=== PATIENT | female | born 1960 | race Caucasian/White ===

== ENCOUNTER 2018-02-06 00:45 | Emergency (ER) | payer MEDICAID ==
[~2018-02-06] VITALS: Ht 154.9 cm; Wt 78.0 kg
[~2018-02-06 00:45] MED LIST: ALPR1TAB2 PO; BACL10TA PO; LEVO500T20 PO; METR500T PO; TRAM50TA92 PO; VALS80TA2 PO
[2018-02-06 01:00] VITALS: BP_SYST 138
--- NOTE | 2018-02-06 01:45 | NUR ---
PLACED IN [facility], AT BEDSIDE. WRISTBAND ON, STABLE.
--- NOTE | 2018-02-06 01:56 | NUR ---
PATIENT PRESENTS TO ED WITH EXASCERBATION OF CHRONIC PAIN, CRAMPING, POSSIBLY RELATED TO CANCER AND TAMOXIFEN.
--- NOTE | 2018-02-06 02:05 | NUR ---
AT BEDSIDE, DR CARMONA
[2018-02-06] MEDS ORDERED: KETOROLAC TROMETHAMINE 60 MG/2 ML VIAL IM ONE ×3 (02:15→10:00)
--- NOTE | 2018-02-06 02:25 | NUR ---
PATIENT MEDICATED WITH MORPHINE IM. IS SLEEPING, SQUIRMING, KICKING RAILS AND MOANING IN HER SLEEP
[2018-02-06] MEDS ORDERED: MORPHINE 4 MG/ML INJ. SYRINGE ONE (02:37)
--- NOTE | 2018-02-06 02:53 | NUR ---
Alexis mitchell in ED - 02/06/18 at 0409 by MITESH REWRAPPED ARM SPLINT WITH TWO ADENIKE BANDAGES AND GAUZE. PATIENT UNABLE TO SIT DUE TO CHRONIC PAIN, IS PACING IN HALLWAY.
[2018-02-06] MEDS ORDERED: MORPHINE 4 MG/ML INJ. SYRINGE IM ONE (03:00)
--- NOTE | 2018-02-06 03:30 | NUR ---
# 20 gauge angiocath placed to LH. Use of asceptic technique. Opsite placed over site. Blood return noted. UNABLE TO OBTAIN BLOOD. Flushed with 10 cc of normal saline. No evidence of infiltration noted. Patient tolerated well.
[2018-02-06] MEDS ORDERED: MAGNESIUM SULFATE 50 ML IV ONE (04:00)
[2018-02-06] MEDS ORDERED: DIAZEPAM 10 MG/2 ML DISP.SYRIN IVP ONE (04:00)
[2018-02-06] MEDS ORDERED: NACL 0.9% 1,000 ML IV ONE (04:00)
[2018-02-06] MEDS ORDERED: LORazepam 2 MG/ML VIAL (FOR ER USE) IVP ONE (04:30)
[2018-02-06 05:55] LABS: BASOPHILS # (AUTO) 0.1 K/uL (0.0-0.2); BASOPHILS % (AUTO) 0.7 % (0.0-2.0); EOSINOPHILS # (AUTO) 0.3 K/uL (0.0-0.4); HEMATOCRIT 42.3 % (36-48); HEMOGLOBIN 13.9 g/dL (12.0-16.0); LYMPHOCYTES # (AUTO) 1.9 K/uL (1.0-5.5); MEAN CORPUSCULAR HEMOGLOBIN 30 pg (27-31); MEAN CORPUSCULAR HGB CONC 33 % (32-36); MEAN CORPUSCULAR VOLUME 93 fL (79.0-98.0); MONOCYTES # (AUTO) 0.7 K/uL (0.0-1.0); MONOCYTES % (AUTO) 7.4 % (1.7-9.3); NEUTROPHILS % (AUTO) 69.9 % (40.0-70.0); PLATELET COUNT (AUTO) 271 K/uL (130-430); RED BLOOD CELL COUNT(AUTO) 4.55 MIL/uL (4.2-6.2); RED CELL DISTRIBUTION WIDTH 11.5 % (9.0-15.0)
[2018-02-06 06:04] LABS: CALCIUM 8.5 mg/dL (8.4-11.0); CREATININE 0.94 mg/dL (0.55-1.30); POTASSIUM 3.4 mmol/L (3.5-5.1)
[2018-02-06 06:08] LABS: ALBUMIN 3.1 g/dL (3.4-4.8); TOTAL BILIRUBIN 0.2 mg/dL (0.0-1.0)
--- NOTE | 2018-02-06 07:30 | NUR ---
Assumed care. Pt difficult arouse s/p receiving medication prior to assuming care. VSS. Continuing to monitor.
--- NOTE | 2018-02-06 09:00 | NUR ---
Pt AAO X 4, pt to restroom.
[2018-02-06] MEDS ORDERED: KETOROLAC TROMETHAMINE 30 MG VIAL IVP ONE (09:30)
[2018-02-06] MEDS ORDERED: traMADol HCL HCL 50 MG TABLET (ULTRAM) PO ONE (09:45)
--- NOTE | 2018-02-06 09:45 | NUR ---
Pt medicated tolerated well.
[2018-02-06 10:15] VITALS: BP_SYST 136
--- NOTE | 2018-02-06 10:15 | NUR ---
Patient given written and verbal discharge instructions and verbalizes understanding. ER MD discussed with patient the results and treatment provided. Patient in stable condition. ID arm band removed. IV catheter removed intact and dressing applied, no active bleeding. Rx of tramadol given. Patient educated on pain management and to follow up with PMD. Pain Scale 3. Opportunity for questions provided and answered. Medication side effect fact sheet provided.
== END 2018-02-06 10:15 | disposition home or self-care (01) ==
LOC: SED 00:45
DX: R53.1 Weakness (principal); R25.2 Cramp and spasm; I10 Essential (primary) hypertension; Z85.3 Personal history of malignant neoplasm of breast; Z88.6 Allergy status to analgesic agent; Z79.899 Other long term (current) drug therapy
CPT/HCPCS: 36415; 80053; 85025; 96365; 96366; 96372; 99285; J1885 ×2; J2270; J3475; J7030

== ENCOUNTER 2018-12-30 13:38 | Emergency (ER) | payer MEDICAID ==
[~2018-12-30] VITALS: Ht 154.9 cm; Wt 77.1 kg
[2018-12-30 14:28] VITALS: BP_SYST 120
[2018-12-30] MEDS ORDERED: fentaNYL CITRATE/PF 100 MCG/2 ML AMP IM ONE (17:00)
[2018-12-30] MEDS ORDERED: KETOROLAC TROMETHAMINE 60 MG/2 ML VIAL IM ONE (17:00)
[2018-12-30] MEDS ORDERED: CLINDAMYCIN HCL 150 MG CAPSULE PO ONE (17:15)
[2018-12-30 18:00] VITALS: BP_SYST 153
== END 2018-12-30 17:59 | disposition home or self-care (01) ==
LOC: SED 13:38
DX: S02.2XXB Fracture of nasal bones, initial encounter for open fracture (principal); S01.81XA Laceration without foreign body of other part of head, initial encounter; I10 Essential (primary) hypertension; Z85.3 Personal history of malignant neoplasm of breast; Z85.53 Personal history of malignant neoplasm of renal pelvis; Z88.5 Allergy status to narcotic agent; Z79.899 Other long term (current) drug therapy; W18.2XXA Fall in (into) shower or empty bathtub, initial encounter; Y93.89 Activity, other specified; Y92.89 Other specified places as the place of occurrence of the external cause; Y99.8 Other external cause status
CPT/HCPCS: 12011; 70450; 70486; 72125; 96372; 99284; J1885; J3010

== ENCOUNTER 2020-02-04 15:40 | Emergency (ER) | payer MEDICAID ==
[~2020-02-04] VITALS: Ht 154.9 cm; Wt 80.7 kg
--- NOTE | 2020-02-04 15:40 | NUR ---
Patient to ER bed 3 to gown for evaluation. Side rails up.
[2020-02-04 15:46] VITALS: BP_SYST 142
[2020-02-04] MEDS ORDERED: KETOROLAC TROMETHAMINE 60 MG/2 ML VIAL IM ONE (16:15)
--- NOTE | 2020-02-04 16:30 | NUR ---
ER at bedside examining patient.
--- NOTE | 2020-02-04 16:40 | NUR ---
Pt came to ER for R foot wound after scratching. Pt rates pain 3/10, resting in gurney, no distress at this time, VSS.
--- NOTE | 2020-02-04 17:37 | NUR ---
Pt resting in [facility] at this time. no distress
[2020-02-04 18:08] VITALS: BP_SYST 142
--- NOTE | 2020-02-04 18:09 | NUR ---
Patient given written and verbal discharge instructions and verbalizes understanding. ER MD discussed with patient the results and treatment provided. Patient in stable condition. ID arm band removed. Rx of Bacitracin and Keflex given. Patient educated on pain management and to follow up with PMD. Pain Scale 0/10. Opportunity for questions provided and answered. Medication side effect fact sheet provided.
== END 2020-02-04 18:08 | disposition home or self-care (01) ==
LOC: SED 15:40
DX: L03.116 Cellulitis of left lower limb (principal); I10 Essential (primary) hypertension; N28.9 Disorder of kidney and ureter, unspecified; Z79.899 Other long term (current) drug therapy; Z88.6 Allergy status to analgesic agent
CPT/HCPCS: 73630; 96372; 99283; J1885

== ENCOUNTER 2020-02-11 15:15 | Emergency (ER) | payer MEDICAID ==
[~2020-02-11] VITALS: Ht 154.9 cm; Wt 81.2 kg
[2020-02-11 15:22] VITALS: BP_SYST 159
--- NOTE | 2020-02-11 15:31 | NUR ---
Patient to ER bed 4 to gown for evaluation. Side rails up. Report given to Alfie DELGADO.
--- NOTE | 2020-02-11 15:41 | NUR ---
pt in gurney with side rails up. C/O abdominal pain. Abdomen distended. Pt confirms having regular BMs.
[2020-02-11] MEDS ORDERED: MORPHINE 4 MG/ML INJ. SYRINGE IVP ONE (15:45)
[2020-02-11] MEDS ORDERED: KETAMINE 30 MG/3 ML SYRINGE 10 MG in NS 100 ML IV ONE (15:45)
--- NOTE | 2020-02-11 16:18 | NUR ---
On ketamine infusion IV for pain control. Pt is tolerating well. VSS
[2020-02-11] MEDS ORDERED: KETAMINE 30 MG/3 ML SYRINGE ONE (16:20)
--- NOTE | 2020-02-11 16:28 | NUR ---
Pt is awake and responding well. VSS
[2020-02-11 16:52] VITALS: BP_SYST 138
--- NOTE | 2020-02-11 16:53 | NUR ---
Patient given written and verbal discharge instructions and verbalizes understanding. ER MD discussed with patient the results and treatment provided. Patient in stable condition. ID arm band removed. IV catheter removed intact and dressing applied, no active bleeding. Rx of Percocet given. Patient educated on pain management and to follow up with PMD. Pain Scale 1/10. Opportunity for questions provided and answered. Medication side effect fact sheet provided.
== END 2020-02-11 16:53 | disposition home or self-care (01) ==
LOC: SED 15:15
DX: C78.7 Secondary malignant neoplasm of liver and intrahepatic bile duct (principal); R10.31 Right lower quadrant pain; I10 Essential (primary) hypertension; N28.9 Disorder of kidney and ureter, unspecified; Z85.3 Personal history of malignant neoplasm of breast; Z79.899 Other long term (current) drug therapy; Z88.5 Allergy status to narcotic agent
CPT/HCPCS: 96365; 96375; 99284; J2270